=== PATIENT | female | born 1980 | race Caucasian/White ===

== ENCOUNTER 2018-03-15 14:56 | Emergency (ER) | END 2018-03-15 18:11 | disposition home or self-care (01) ==

== ENCOUNTER 2018-03-18 13:03 | Emergency (ER) | END 2018-03-18 15:52 | disposition home or self-care (01) ==

== ENCOUNTER 2018-04-05 19:18 | Emergency (ER) | END 2018-04-06 00:07 | disposition home or self-care (01) ==

== ENCOUNTER 2018-06-01 13:50 | Emergency (ER) | END 2018-06-01 17:34 | disposition home or self-care (01) ==